=== PATIENT | male | born 1955 | race Caucasian/White ===

== ENCOUNTER 2018-07-10 17:22 | Emergency (ER) | payer OTHER ==
[~2018-07-10] VITALS: Ht 177.8 cm; Wt 90.7 kg
[~2018-07-10 17:22] MED LIST: CIPRO500 MG PO; FLOMAX0.4 MG PO; HYDROCODONE-AP1 EAC6 PO; IBUPROFEN 600600 M1 PO; NOHOMEMEDICATIONS; NORCO 5-325 TA1 EACH PO; PHENERGAN 25 MG25 M1 PO
[2018-07-10] MEDS ORDERED: PREDNISONE 20 M20 MG PO (18:23)
[2018-07-10 18:50] VITALS: BP 146/77
== END 2018-07-10 22:48 | disposition home or self-care (01) ==
LOC: ER 17:22
DX: J04.0 Acute laryngitis (principal); I10 Essential (primary) hypertension; F17.210 Nicotine dependence, cigarettes, uncomplicated